=== PATIENT | female | born 2005 | race Caucasian/White ===

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

== ENCOUNTER 2025-02-02 11:53 | Emergency (ER) | payer BC, SELFPAY ==
--- OUTSIDE RECORDS SUMMARY | 2025-02-02 11:54 | XMS_ITS | Clinical Summary ---
Author Organization [facility] Address [address] [place] [address] Care Team Providers Care Board Runner Name Role Phone No, Physician Primary Care Provider [phone] Allergies Active Allergy Reactions Criticality Noted Date Comments Kiwi Anaphylaxis High 08/05/2024 Milk Diarrhea Low 08/05/2024 Medications ondansetron ODT (ZOFRAN-ODT) 4 mg disintegrating tablet Take 1 tablet (4 mg total) by mouth every 8 (eight) hours as needed for nausea or vomiting 20 tablet Active Social History Tobacco Use Types Packs/Day Years Used Date Smoking Tobacco: Never Assessed Personal Safety Answer Date Recorded Have you ever been in or are you currently in a harmful physical or emotional relationship or is someone making you feel afraid or unsafe? Denies 08/05/2024 Comments Unknown Sex and Gender Information Value Date Recorded Sex Assigned at Not on file Legal Sex Female 1:23 PM CARBON GRINDER Gender Identity Not on file Sexual Orientation Not on file Obstetrics History Growth Chart Information Age Height Weight Yilfzc-phu-oeyk th Percentile BMI Percentile Head Circum Head Circum Percentile Date 19 years 162.6 cm (5' 4) 104.3 kg (230 lb) 98.59%* 2023 * [facility] (Girls, 2-20 Years) Last Filed Vital Signs Vital Sign Reading Time Taken Comments Blood Pressure 143/99 08/05/2024 4:22 PM CARBON GRINDER Pulse 74 08/05/2024 4:22 PM CARBON GRINDER Temperature 35.9 C (96.6 F) 08/05/2024 1:26 PM CARBON GRINDER Respiratory Rate 18 08/05/2024 4:22 PM CARBON GRINDER Oxygen Saturation 98% 08/05/2024 4:22 PM CARBON GRINDER Inhaled Oxygen Concentration - - Weight 104.3 kg (230 lb) 08/05/2024 1:26 PM CARBON GRINDER Height 162.6 cm (5' 4) 08/05/2024 1:26 PM CARBON GRINDER Body Mass Index 39.48 08/05/2024 1:26 PM CARBON GRINDER Plan of Treatment Health Maintenance Due Date Last Done Comments Depression Screening 2005 Hepatitis C Screening 2005 DTaP/Tdap/Td Vaccine (1 - Tdap) 2016 Varicella Vaccines (1 of 2 - 13+ 2-dose series) 2018 HPV Vaccines (1 - 3-dose series) 2020 Meningococcal B Vaccine (1 o f 2 - Standard) 2021 Hepatitis B Screening 2023 Regular Well Visit/Exam 18-64 2023 Influenza Vaccine (Season Ended) 2025 Meningococcal Vaccine Aged Out No saad terrell eligible based on patient's age to complete this topic Pneumococcal vaccine <65 Aged Out No longer eligible based on patient's age to complete this topic Insurance [facility] PLAN [place] [id number] Care Teams Board Runner Relationship Specialty Start Date End Date No, Physician PCP - General 08/05/24
--- OUTSIDE RECORDS SUMMARY | 2025-02-02 11:54 | XMS_ITS | Referral Summary ---
Author Organization [facility] Address [address] [place] [address] Care Team Providers Care Restaurant Line Cook Name Role Phone No, Physician Primary Care Provider [phone] Allergies Active Allergy Reactions Criticality Noted Date [...] on file Legal Sex Female 1:23 PM JEWEL CORNER BRUSHING MACHINE OPERATOR Gender Identity Not on file Sexual Orientation Not on file Last Filed Vital Signs Vital Sign Reading Time Taken Comments Blood Pressure 143/99 08/05/2024 4:22 PM JEWEL CORNER BRUSHING MACHINE OPERATOR Pulse 74 08/05/2024 4:22 PM JEWEL CORNER BRUSHING MACHINE OPERATOR Temperature 35.9 C (96.6 F) 08/05/2024 1:26 PM JEWEL CORNER BRUSHING MACHINE OPERATOR Respiratory Rate 18 08/05/2024 4:22 PM JEWEL CORNER BRUSHING MACHINE OPERATOR Oxygen Saturation 98% 08/05/2024 4:22 PM JEWEL CORNER BRUSHING MACHINE OPERATOR Inhaled Oxygen Concentration - - Weight 104.3 kg (230 lb) 08/05/2024 1:26 PM JEWEL CORNER BRUSHING MACHINE OPERATOR Height 162.6 cm (5' 4) 08/05/2024 1:26 PM JEWEL CORNER BRUSHING MACHINE OPERATOR Body Mass Index 39.48 08/05/2024 1:26 PM JEWEL CORNER BRUSHING MACHINE OPERATOR Plan of Treatment Not on file Insurance [facility] [employer] Care Teams Restaurant Line Cook Relationship Specialty Start Date End Date No, Physician PCP - General 08/05/24
[2025-02-02 11:58] VITALS: BP 131/92; PULSE 87; RESP 18; TEMP 36.4; O2SAT 100
--- NOTE | 2025-02-02 12:10 | ED_ITS ---
HPI - Nausea/Vomiting/Diarrhea General Chief complaint: Nausea/Vomiting/Diarrhea Stated complaint: Stomach Problems/Diarrhea Time Seen by Provider: 02/02/25 12:10 Source: patient and RN notes reviewed Mode of arrival: ambulatory Limitations: no limitations History of Present Illness HPI Narrative: 19 y/o female presented for c/o diarrhea for 3 days. Says symptoms are improving. Having 3-4 stools/day. Pain is down to 3/10 and is all over the belly. Denies hematochezia, melena, fever or lethargy. Family has had similar symptoms. not taking anything. Related Data Home Medications ?Medication ?Instructions ?Recorded ?Confirmed ?Last Taken ?Type levonorgestrel (Mirena) 1 device intrauterine ONCE 07/08/23 03/01/24 Unknown History citalopram 20 mg tablet mg 02/02/25 Unknown History Allergies Allergy/AdvReac Type Severity Reaction Status Date / Time dairy AdvReac Diarrhea Uncoded 02/02/25 12:04 Review of Systems Review of Systems: CONSTITUTIONAL: Denies body aches, fever, chills ENT: Denies rhinorrhea, congestion CARDIOVASCULAR: Denies chest pain, palpitations, or edema. RESPIRATORY: Denies cough or dyspnea. GASTROINTESTINAL: Endorses diarrhea. Denies abdominal pain, nausea, vomiting, hematochezia, melena, hematemesis GENITOURINARY: Denies dysuria, hematuria, or CVA tenderness. SKIN: Denies rash MUSCULOSKELETAL: Denies back pain, joint pain, or myalgia. NEUROLOGIC: Denies headache All systems reviewed & are unremarkable except as noted in HPI and below PMFSH Past Medical History Medical History UTI (urinary tract infection) Anxiety Surgical History Surgical History History of tonsillectomy Social History Social History Smoking status: Never smoker Alcohol intake: never Substance use: never Living arrangements: with family Occupation/Education: student Gender identity (if verbalized by the patient): Female Comments At time of signature, I have reviewed and agree with nursing past medical, surgical, social and family history unless otherwise noted. Please see nursing chart for further information. There is no relevant family history pertinent to the presenting complaint Exam Narrative: GENERAL: Well-appearing, and in no acute distress. ENT: Mucous membranes pink and moist. CHEST: No respiratory distress. Clear to auscultation. HEART: Regular rate and rhythm. No murmur appreciated. Normal peripheral pulses. ABDOMEN: abd soft, nondistended, normal active bowel sounds.nontender abdomen; No guarding, rebound tenderness, asymmetry EXTREMITIES: Normal range of motion. No edema. SKIN: Warm, dry, no rash. Capillary refill normal. Normal skin turgor. NEURO: No focal deficits. Alert and oriented x3. PSYCH: Normal affect. Course Course Emergency Course: Patient is aware of diagnosis, understands and agrees to treatment plan. A nticipatory guidance given. Patient agrees to follow-up as directed and is aware of reasons to seek care at the emergency department. Portions of this record may have been created with voice recognition software Level of Care: Express Care Visit Vital Signs Vital signs: Vital Signs Temperature 97.5 F L 02/02/25 11:58 Pulse Rate 87 02/02/25 11:58 Respiratory Rate 18 02/02/25 11:58 Blood Pressure 131/92 H 02/02/25 11:58 Pulse Oximetry 100 02/02/25 11:58 Oxygen Delivery Room Air 02/02/25 11:58 Temperature 97.5 F L 02/02/25 11:58 Pulse Rate 87 02/02/25 11:58 Respiratory Rate 18 02/02/25 11:58 Blood Pressure 131/92 H 02/02/25 11:58 Pulse Oximetry 100 02/02/25 11:58 Oxygen Delivery Room Air 02/02/25 11:58 MDM - Nausea/Vomiting/Diarrhea MDM Narrative Medical decision making narrative: Discussed physical exam findings; no fever or reports of hematochezia. Advised supportive measures and signs/symptoms to go to the ER. Pt is appropriate for outpt treatment and f/u. Differential Diagnosis Differential diagnosis: Likely traveler's diarrhea, food poisoning, gastroenteritis, clostridium difficile infection, drug-induced nausea and vomiting and dehydration Discharge Plan Discharge Clinical Impression: Acute diarrhea Patient Disposition: Home Condition: Stable Instructions: Antibiotic Form, Acute Diarrhea (ED) Additional Instructions: Stay hydrated. Take small sips of fluid containing electrolytes frequently. Clear liquids (broth, jello, tea, sprite, pedialyte) Baxter foods (bananas, rice, applesauce, toast, crackers) Avoid fatty, greasy, fried or spicy foods. Limit dairy until symptoms are improved. [id number] Imodium according to package directions Recommend probiotic such as align or lactobacillus to help with symptoms. You should go to the hospital if you experience persistent nausea and vomiting that does not resolve and does not allow you to tolerate any food or fluids, fevers, increasing abdominal pain, persistent diarrhea, dizziness, fainting, or for any other concerns. Follow up with primary care provider in 3 days. Patient Language: Citizen Of [place] Prescriptions: No Action citalopram 20 mg tablet Mirena 21 mcg/24 hours (8 yrs) 52 mg Intrauterine Device 1 device INTRAUTERINE ONCE Rx Instructions: as a single dose Follow-up/Referrals: PHYSICIAN,CAGE LOADER [Primary Care Provider] - Stand Alone Forms: Work/School Release IP Time of Disposition: 12:16
== END 2025-02-02 12:21 | disposition home or self-care (01) ==
PROVIDERS: Emergency Provider Nurse Practitioner Family
DX: R19.7 Diarrhea, unspecified (principal)
CPT/HCPCS: 99211; G0463

== ENCOUNTER 2025-04-07 13:49 | Emergency (ER) | payer OTHER, BC, SELFPAY ==
--- OUTSIDE RECORDS SUMMARY | 2025-04-07 13:51 | XMS_ITS | Clinical Summary ---
Author Organization [facility] Address [address] [place] [address] Care Team Providers Care Physician Practice Consultant Name Role Phone No, Physician Primary Care Provider [phone] Allergies Active Allergy Reactions Criticality Noted Date [...] on file Legal Sex Female 1:23 PM HOME HEALTH RN Gender Identity Not on file Sexual Orientation Not on file Obstetrics History Last Filed Vital Signs Vital Sign Reading Time Taken Comments Blood Pressure 143/99 08/05/2024 4:22 PM HOME HEALTH RN Pulse 74 08/05/2024 4:22 PM HOME HEALTH RN Temperature 35.9 C (96.6 F) 08/05/2024 1:26 PM HOME HEALTH RN Respiratory Rate 18 08/05/2024 4:22 PM HOME HEALTH RN Oxygen Saturation 98% 08/05/2024 4:22 PM HOME HEALTH RN Inhaled Oxygen Concentration - - Weight 104.3 kg (230 lb) 08/05/2024 1:26 PM HOME HEALTH RN Height 162.6 cm (5' 4) 08/05/2024 1:26 PM HOME HEALTH RN Body Mass Index 39.48 08/05/2024 1:26 PM HOME HEALTH RN Plan of Treatment Health Maintenance Due Date Last Done Comments Depression Screening 2005 Hepatitis C Screening 2005 DTaP/Tdap/Td Vaccine (1 - Tdap) 2016 Varicella Vaccines (1 of 2 - 13+ 2-dose series) 2018 HPV Vaccines (1 - 3-dose series) 2020 Meningococcal B Vaccine (1 o f 2 - Standard) 2021 Hepatitis B Screening 2023 Regular Well Visit/Exam 18-64 2023 Influenza Vaccine (#1) 2025 Meningococcal Vaccine Aged Out No saad terrell eligible based on patient's age to complete this topic Pneumococcal vaccine <65 Aged Out No longer eligible based on patient's age to complete this topic Insurance [facility] Care Teams Physician Practice Consultant Relationship Specialty Start Date End Date No, Physician PCP - General 08/05/24
--- OUTSIDE RECORDS SUMMARY | 2025-04-07 13:51 | XMS_ITS | Referral Summary ---
Author Organization [facility] Address [address] [place] [address] Care Team Providers Care Cloth Covered Helmet Puller Name Role Phone No, Physician Primary Care Provider [phone] Allergies Active Allergy Reactions Criticality Noted Date [...] on file Legal Sex Female 1:23 PM RN UTILIZATION MANAGEMENT UM Gender Identity Not on file Sexual Orientation Not on file Last Filed Vital Signs Vital Sign Reading Time Taken Comments Blood Pressure 143/99 08/05/2024 4:22 PM RN UTILIZATION MANAGEMENT UM Pulse 74 08/05/2024 4:22 PM RN UTILIZATION MANAGEMENT UM Temperature 35.9 C (96.6 F) 08/05/2024 1:26 PM RN UTILIZATION MANAGEMENT UM Respiratory Rate 18 08/05/2024 4:22 PM RN UTILIZATION MANAGEMENT UM Oxygen Saturation 98% 08/05/2024 4:22 PM RN UTILIZATION MANAGEMENT UM Inhaled Oxygen Concentration - - Weight 104.3 kg (230 lb) 08/05/2024 1:26 PM RN UTILIZATION MANAGEMENT UM Height 162.6 cm (5' 4) 08/05/2024 1:26 PM RN UTILIZATION MANAGEMENT UM Body Mass Index 39.48 08/05/2024 1:26 PM RN UTILIZATION MANAGEMENT UM Plan of Treatment Not on file Insurance [facility] PL[facility] Care Teams Cloth Covered Helmet Puller Relationship Specialty Start Date End Date No, Physician PCP - General 08/05/24
[2025-04-07 14:00] VITALS: BP 120/71; PULSE 83; RESP 16; TEMP 36.5; O2SAT 98
--- NOTE | 2025-04-07 14:23 | ED_ITS ---
HPI - Female Genitourinary General Chief complaint: SOLUTIONS CONSULTANT Stated complaint: burning pain between legs Time Seen by Provider: 04/07/25 14:24 Source: patient, RN notes reviewed and old records reviewed Mode of arrival: ambulatory Limitations: no limitations History of Present Illness HPI Narrative: 20-year-old female presents to the [facility] with burning/irritation of the posterior vaginal area after having sex 2 days ago. Unknown rash. Patient states that she has been with the same partner for 5 years, denies any chances of STDs. Denies any urinary frequency urgency or burning Related Data Home Medications ?Medication ?Instructions ?Recorded ?Confirmed ?Last Taken ?Type levonorgestrel (Mirena) 1 device intrauterine ONCE 07/08/23 03/01/24 Unknown History citalopram 20 mg tablet mg 02/02/25 Unknown History Allergies Allergy/AdvReac Type Severity Reaction Status Date / Time dairy AdvReac Diarrhea Uncoded 02/02/25 12:04 Review of Systems 2 Review of Systems: All systems reviewed & are unremarkable except as noted in HPI and below Constitutional: Constitutional: Reports no additional constitutional complaints ENT: Reports system reviewed and no additional complaints, except as documented Genitourinary: Genitourinary: Reports as per HPI Musculoskeletal: Musculoskeletal: Reports no additional musculoskeletal complaints Integumentary/Breasts: Skin/Breast: Reports system reviewed and no additional complaints, except as docu PMFSH Past Medical History Medical History UTI (urinary tract infection) Anxiety Surgical History Surgical History History of tonsillectomy Social History Social History Smoking status: Never smoker Alcohol intake: never Substance use: never Living arrangements: with family Occupation/Education: student Gender identity (if verbalized by the patient): Female Comments At the time of my signature, I reviewed and agree with the nursing past medical, surgical, social, and family history. There is no relevant family history pertinent to the patient complaint. Exam 2 Const: General: cooperative, healthy appearing, comfortable, no acute distress, well developed, alert and well nourished Nutritional Appearance: w ell nourished and obese Orientation/consciousness: patient oriented x3 L imitations: no limitations HENMT: Head: normal to inspection Eyes: General: appearance normal, both eyes and all related structures A lignment and Position: alignment normal Neck: Neck: normal visual inspection, full ROM, no lymphadenopathy and no meningeal signs Chest: Chest palpation & inspection: normal inspection of the chest Resp: Effort & Inspection: normal respiratory effort and able to speak in complete sentences Cardio: Rate: regular rate GI: GI Palp: No abdominal tenderness : General: Yes no CVA tenderness Other: Chaperoned by Kim RT Female genitals images: 1. Small abrasion, no bleeding, no swelling, no rashes. Skin: General skin exam: normal color and no rashes or lesions noted Neuro: General: patient oriented x3, gait normal, moves all extremities and no meningeal signs Cognition (Neuro): normal cognition Speech: normal speech Gait exam (Neuro): Normal gait present Extrem: General: normal to inspection, full ROM, capillary refill normal and normal gait Psych: Appearance: grossly normal and well kempt Mental Status: mental status grossly normal Speech and movement: Normal speech and movement present and Clear speech present Affect: normal affect Attitude: cooperative Course Course Level of Care: Express Care Visit Vital Signs Vital signs: Vital Signs Temperature 97.7 F 04/07/25 14:00 Pulse Rate 83 04/07/25 14:00 Respiratory Rate 16 04/07/25 14:00 Blood Pressure 120/71 04/07/25 14:00 Pulse Oximetry 98 04/07/25 14:00 Oxygen Delivery Room Air 04/07/25 14:00 Temperature 97.7 F 04/07/25 14:00 Pulse Rate 83 04/07/25 14:00 Respiratory Rate 16 04/07/25 14:00 Blood Pressure 120/71 04/07/25 14:00 Pulse Oximetry 98 04/07/25 14:00 Oxygen Delivery Room Air 04/07/25 14:00 Reviewed MDM - Female Genitourinary MDM Narrative Medical decision making narrative: Patient sitting in exam room. Patient is nontoxic, vitals stable. Patient presents with irritation post anterior vaginal Small abrasion noted No discharge, no rashes. Point care urine is negative Patient requesting a work note for today Patient appropriate for outpatient treatment with close follow-up Discharge instructions reviewed with patient, as well as provided in writing per nursing staff. The instructions also include specific and strict return/GO TO THE ER as well as f/u information. All questions have been answered, and the patient deny any further questions with discharge and discharge plan. Some parts of this dictation were generated by voice recognition software and may contain typographical and/or grammatical inaccuracies. Differential Diagnosis Differential diagnosis: Likely urinary tract infection, bacterial vaginosis, cystitis and other Lab Data Labs: Lab Results 04/07/25 Range/Units 14:37 POC Urine Color Yellow POC Urine Clarity Clear POC Urine pH 6.5 POC Ur Specif [place] 1.030 POC Urine Protein Negative (Negative) POC Ur Glucose (UA) Negative (Negative) POC Urine Ketones Negative (Negative) POC Urine Blood Negative (Negative) POC Urine Nitrite Negative (Negative) POC Urine Bilirubin Negative (Negative) POC Urine Urobilinogen 0.2 POC U Leukocyte Esteras Negative (Negative) Reviewed Critical Care Time Critical Care Time Critical Care Time: No Discharge Plan Discharge Clinical Impression: Vaginal abrasion Qualifiers: Encounter type: initial encounter Qualified Code(s): S30.814A - Abrasion of vagina and vulva, initial encounter Patient Disposition: Home Condition: Stable Instructions: Sitz Bath (DC) Additional Instructions: soak 15-20 minutes in a Sitz bath. A Sitz bath would be 3 inches of water, 3 tbsp of baking soda, 3 tbsp of Epsom salt. To the sore area you can apply coconut well When having sex you can use a water-based lubricant Patient Language: Maltese Prescriptions: No Action citalopram 20 mg tablet Mirena 21 mcg/24 hours (8 yrs) 52 mg Intrauterine Device 1 device INTRAUTERINE ONCE Rx Instructions: as a single dose Follow-up/Referrals: PHYSICIAN,DISTRIBUTION OPERATIONS MANAGER [Primary Care Provider] - Stand Alone Forms: Work/School Release IP Time of Disposition: 14:52
[2025-04-07 14:42] LABS: EDUAAPPEAR Clear; EDUABILI Negative (Negative); EDUABLOOD Negative (Negative); EDUACOLOR1 Yellow; EDUAGLUCOSE Negative (Negative); EDUAKETONE Negative (Negative); EDUALEUKO Negative (Negative); EDUANITRATE Negative (Negative); EDUAPH 6.5; EDUAPROTEIN Negative (Negative); EDUASPGRAVITY 1.030; EDUAUROBILI 0.2
== END 2025-04-07 14:55 | disposition home or self-care (01) ==
PROVIDERS: Emergency Provider Nurse Practitioner
DX: S30.814A Abrasion of vagina and vulva, initial encounter (principal); X58.XXXA Exposure to other specified factors, initial encounter
CPT/HCPCS: 81003; 99212; G0463

== ENCOUNTER 2025-05-25 18:42 | Emergency (ER) | payer OTHER, BC, SELFPAY ==
[2025-05-25 18:48] VITALS: BP 143/83; PULSE 105; RESP 20; TEMP 36.7; O2SAT 100
--- NOTE | 2025-05-25 19:07 | ED.EAR ---
HPI - Ear Problem General Chief complaint: Ear Stated complaint: ear pain Source: patient Mode of arrival: ambulatory Limitations: no limitations History of Present Illness HPI Narrative: 20 old female presented for complaint of right ear pain. Onset 2 days. Denies associated dizziness, drainage, nausea vomiting, fevers or chills. Endorses history of ear infections. She has tried fali-niy-wefwdgv pain relief ear drops Complaint: ear pain Related Data Allergies Allergy/AdvReac Type Severity Reaction Status Date / Time kiwi Allergy Unknown Unknown Verified 05/25/25 18:51 dairy AdvReac Diarrhea Uncoded 02/02/25 12:04 Review of Systems Review of Systems: CONSTITUTIONAL: Denies malaise, chills, or fever. EYES: Denies visual changes, redness, or discharge. ENT: Denies rhinorrhea, congestion, sinus pain, and sore throat. Reports ear pain CARDIOVASCULAR: Denies chest pain, palpitations, or edema. RESPIRATORY: Denies cough or dyspnea. GASTROINTESTINAL: Denies abdominal pain, nausea, vomiting, diarrhea SKIN: Denies rash or itching. MUSCULOSKELETAL: Denies myalgia. NEUROLOGIC: Denies headache. All systems reviewed & are unremarkable except as noted in HPI and below PMFSH Past Medical History Medical History UTI (urinary tract infection) Anxiety Surgical History Surgical History History of tonsillectomy Social History Social History Smoking status: Never smoker Alcohol intake: never Substance use: never Living arrangements: with family Occupation/Education: student Gender identity (if verbalized by the patient): Female Comments At time of signature, agree with nursing past medical, surgical, social and family history. There is no relevant family history pertinent to the presenting complaint Exam Narrative: GENERAL: Well-appearing EYES: PERRLA, conjunctivae clear ENT: Nares clear. Mucous membranes moist. Right TM erythematous, bulging and intact; canal not erythematous, no drainage, no tragal tenderness. Oropharynx not erythematous without lesions. no drooling, no hoarseness, no trismus, uvula midline. NECK: Supple. No lymphadenopathy CHEST: Clear to auscultation, breath sounds equal. No wheezing, rhonchi, rales, or stridor. No respiratory distress, speaks in full sentences. HEART: Regular rate and rhythm. No murmur heard. SKIN: Warm, dry, no rash. NEURO: Alert and oriented x3. PSYCH: Normal mood and affect Course Course Emergency Course: Patient is aware of diagnosis, understands and agrees to treatment plan. Anticipatory guidance given. Patient agrees to follow-up as directed and is aware of reasons to seek care at the emergency department. Portions of this record may have been created with voice recognition software Level of Care: Express Care Visit Vital Signs Vital signs: Vital Signs Temperature 98.1 F 05/25/25 18:48 Pulse Rate 105 H 05/25/25 18:48 Respiratory Rate 20 05/25/25 18:48 Blood Pressure 143/83 H 05/25/25 18:48 Pulse Oximetry 100 05/25/25 18:48 Oxygen Delivery Room Air 05/25/25 18:48 Temperature 98.1 F 05/25/25 18:48 Pulse Rate 105 H 05/25/25 18:48 Respiratory Rate 20 05/25/25 18:48 Blood Pressure 143/83 H 05/25/25 18:48 Pulse Oximetry 100 05/25/25 18:48 Oxygen Delivery Room Air 05/25/25 18:48 Reviewed Medical Decision Making MDM Narrative Medical decision making narrative: discussed physical exam findings consistent with right AOM. Reviewed antibiotic. Advised supportive measures and signs/symptoms to go to the ER. Patient is appropriate for outpatient treatment and follow-up. Differential Diagnosis Differential Diagnosis: Coronavirus, strep pharyngitis, allergic rhinitis, upper respiratory tract infection, sinusitis, rhinosinusitis, nasopharyngitis, viral pharyngitis, otitis media, otitis externa, eustachian tube dysfunction, foreign body, cerumen impaction. Vital Signs Vital Signs: Vital Signs Temperature 98.1 F 05/25/25 18:48 Pulse Rate 105 H 05/25/25 18:48 Respiratory Rate 20 05/25/25 18:48 Blood Pressure 143/83 H 05/25/25 18:48 Pulse Oximetry 100 05/25/25 18:48 Oxygen Delivery Room Air 05/25/25 18:48 Temperature 98.1 F 05/25/25 18:48 Pulse Rate 105 H 05/25/25 18:48 Respiratory Rate 20 05/25/25 18:48 Blood Pressure 143/83 H 05/25/25 18:48 Pulse Oximetry 100 05/25/25 18:48 Oxygen Delivery Room Air 05/25/25 18:48 Discharge Plan Discharge Clinical Impression: Otitis media Patient Disposition: Home Condition: Stable Instructions: Antibiotic Form, Ear Infection (ED) Additional Instructions: Take antibiotics as directed. Tylenol 1000mg every 8 hours as needed to reduce fever, pain Please schedule a follow-up visit with your personal physician If your symptoms persist, change or worsen significantly, go to the emergency department for further evaluation. Patient Language: Saudi Arabian Prescriptions: New amoxicillin-pot clavulanate 875-125 mg tablet 1 tablet PO Q12H 7 Days Qty: 14 0RF Follow-up/Referrals: Fabian,CAROLINE Carlos [Primary Care Provider, Unknown] Time of Disposition: 19:11
--- OUTSIDE RECORDS SUMMARY | 2025-05-25 19:23 | XMS_ITS | Encounter Summary ---
Author Organization [facility] HealthCare Address [address] [place] [address] Phone Care Team Providers Care Formal Service Waiter Name Role Phone Breanna Peralta Primary Care Pro vider Reason for Visit * Reason Onset Date Comments Advice Only 05/25/2025 Encounter Details Date Type Department Care Team ([facility] st Contact Info) Description 05/25/2025 Telephone [facility] Central Call Center [address] [place] [address] Breanna Peralta, [facility] [address] [place] [address] Advice Only Social History Tobacco Use Types Packs/Day Years Used Date Smoking Tobacco: Never Smokeless Tobacco: Never Alcohol Use Standard Drinks/Week Comments Not Currently 0 (1 standard drink = 0.6 oz pur e alcohol) PHQ-2 Answer Date Recorded Total Score - Questions 1-9 13 12/2024 Comments No Sex and Gender Information Value Date Recorded Sex Assigned at Not on file Legal Sex Female 9:28 AM CDT Gender Identity Not on file Sexual Orientation Not on file documented as of this encounter Miscellaneous Notes * Telephone Encounter - Mariia Alvarado RN - 05/25/2025 9:57 AM CDT Situation: advice Background: Patient contacting PCP office. Stating she is having cold symptoms and wants to know if she can still get blood work done. Assessment: Patient advised that she can still get blood work done but advised to hold off on going in or wear a mask if she has any concerns for being contagious. Recommendation: Caller verbalizes understanding documented in this encounter Plan of Treatment Upcoming Encounters Date Type Department Care Team (Late st Contact Info) Description 05/26/2025 8:50 AM CDT Lab [facility] [place] [address] [place] [address] [facility] 05/14/2026 3:30 PM CDT Office Visit [facility] [place] [address] [facility] [address] Breanna Peralta PAC [address] [facility] [address] documented as of this encounter Visit Diagnoses Not on filedocumented in this encounter Additional Health Concerns Assessment Noted Time PHQ-9 Depression Total Score: 13 025 2:38 PM CDT documented as of this encounter Care Teams Formal Service Waiter Relationship Specialty Start Date End Date Breanna Peralta PAC [address] [facility] [address] PCP - General Physician Apparel Stock Checker 05/14/25 documented as of this encounter
--- OUTSIDE RECORDS SUMMARY | 2025-05-25 19:23 | XMS_ITS | Clinical Summary ---
Author Organization [facility] Address [address] [place] [address] Phone Care Team Providers Care Certified Medicine Aide Name Role Phone Breanna Peralta PAC Primary Care Pro vider Allergies Active Allergy Reactions Criticality Noted Date Comments Kiwi Extract Anaphylaxis High 08/05/2024 Milk (Cow) Diarrhea Low 08/05/2024 Medications No known medications Active Problems No known active problems Encounters Date Type Department Care Team Description 05/25/2025 Telephone [facility] Central Call Center [address] [place] [id number] Breanna Peralta, HENRRY Advice Only 05/14/2025 2:30 PM CDT Office Visit [facility] [place] [address] [place] [phone] Breanna Peralta, HENRRY Well adult exam (Primary Dx); Need for hepatitis C screening test; Depression, unspecified depression type; Anxiety; Attention deficit hyperactivity disorder (ADHD), unspecified ADHD type Discharge Disposition: Discharged to home or Selfcare 05/14/2025 Travel 05/08/2025 Transcribe Orders [facility] Central Scheduling [address] [place] [address] Wilma Platt APRN, [place] Unspecified dyspareunia (Primary Dx) from Last 3 Months Family History Medical History Relation Name Comments Diabetes Father Relation Name Status Comments Father Alive Mother Alive Social History Tobacco Use Types Packs/Day Years Used Date Smoking Tobacco: Never Smokeless Tobacco: Never Tobacco Cessation:Counseling Given: No Alcohol Use Standard Drinks/Week Comments Not Currently [...] Sign Reading Time Taken Comments Blood Pressure 122/88 05/14/2025 2:40 PM CDT Pulse 88 05/14/2025 2:40 PM CDT Temperature 36.3 C (97.4 F) 05/14/2025 2:40 PM CDT Respiratory Rate 12 05/14/2025 2:40 PM CDT Oxygen Saturation 98% 05/14/2025 2:40 PM CDT Inhaled Oxygen Concentration - - Weight 101.2 kg (223 lb) 05/14/2025 2:40 PM CDT Height - - Body Mass Index - - Plan of Treatment Upcoming Encounters Date Type Department Care Team (Late st Contact Info) Description 05/26/2025 8:50 AM CDT Lab [facility] [address] [place] [phone] [facility] 05/14/2026 3:30 PM CDT Office Visit [facility] [address] [place] [phone] Breanna Peralta, [facility] [address] [place], [place] [id number] Health Maintenance Due Date Last Done Comments Hepatitis C Virus (HCV) Screening 2005 TdaP Immunization 2005 Human Papillomavirus (HPV) Immunization (1 - 3-dose series) 2020 Meningococcal B Immunization (1 of 2 - Standard) 2021 Hepatitis B Immunization (1 of 3 - 19+ 3-dose series) 2024 Influenza Immunization (#1) 2025 SARS-COV-2 Immunization () 05/11/2025 Respiratory Syncytial Virus (RSV) Immunization (Adult) (1 - 1-dose 75+ series) 2080 Meningococcal Immunization (ACWY) Aged Out No longer eligible based on patient's age to complete this topic Pneumococcal Immunization Combined Aged Out No longer eligible based on patient's age to complete this topic Rotavirus Immunization Aged Out No lo nger eligible based on patient's age to complete this topic Insurance MEDICAID BL[place] Care Teams Certified Medicine Aide Relationship Specialty Start Date End Date Breanna Peralta PAC [address] [place] [address] PCP - General Physician Aircraft Machinist Helper 05/14/25
--- OUTSIDE RECORDS SUMMARY | 2025-05-25 19:23 | XMS_ITS | Clinical Summary ---
Author Organization [facility] Address [address] [place] [address] Care Team Providers Care Stem Shaper Name Role Phone No, Physician Primary Care Provider [phone] Allergies Active Allergy Reactions Criticality Noted Date [...] on file Legal Sex Female 1:23 PM CRUSHER ASSEMBLER Gender Identity Not on file Sexual Orientation Not on file Obstetrics History Last Filed Vital Signs Vital Sign Reading Time Taken Comments Blood Pressure 143/99 08/05/2024 4:22 PM CRUSHER ASSEMBLER Pulse 74 08/05/2024 4:22 PM CRUSHER ASSEMBLER Temperature 35.9 C (96.6 F) 08/05/2024 1:26 PM CRUSHER ASSEMBLER Respiratory Rate 18 08/05/2024 4:22 PM CRUSHER ASSEMBLER Oxygen Saturation 98% 08/05/2024 4:22 PM CRUSHER ASSEMBLER Inhaled Oxygen Concentration - - Weight 104.3 kg (230 lb) 08/05/2024 1:26 PM CRUSHER ASSEMBLER Height 162.6 cm (5' 4) 08/05/2024 1:26 PM CRUSHER ASSEMBLER Body Mass Index 39.48 08/05/2024 1:26 PM CRUSHER ASSEMBLER Plan of Treatment Health Maintenance Due Date [...] patient's age to complete this topic Insurance [facility] Care Teams Stem Shaper Relationship Specialty Start Date End Date No, Physician PCP - General 08/05/24
== END 2025-05-25 19:14 | disposition home or self-care (01) ==
PROVIDERS: Emergency Provider Nurse Practitioner Family; PCP Physician Assistant
DX: H66.91 Otitis media, unspecified, right ear (principal)
CPT/HCPCS: 99213; G0463